=== PATIENT | female | born 1945 | race Asian ===

== ENCOUNTER 2017-06-24 17:49 | Emergency (ER) | payer MEDICARE, MEDICAID ==
--- NOTE | 2017-06-24 18:27 | ED Physician Chart ---
ED Chief Complaint/HPI - Patient Information Date Seen:: 06/24/17 Time Seen:: 18:15 Chief Complaint:: left foot swelling and redness History of Present Illness:: 1 week ago the patient dropped scissors on the lateral aspect of her left ankle. She was placed on antibiotics for cellulitis. She went to Dr. Pandya' s office today for recheck and he sent her here by ambulance. Patient complains of pain with ambulation. Allergies:: Allergies Allergy/AdvReac Type Severity Reaction Status Date / Time No Known Allergies Allergy Verified 06/24/17 17:55 Vitals:: Vital Signs - 8 hr 06/24/17 17:56 Temp 98.7 F HR 69 RR 17 BP 139/77 O2 Sat % 97 Historian:: Patient Review:: Nurse's Note Reviewed ED Review of Systems - Review of Systems General/Constitutional: No fever, No chills Skin: Skin lesions Head: No headache Eyes: No loss of vision ENT: No earache Neck: No neck pain Cardio Vascular: No chest pain, No palpitations Pulmonary: No SOB GI: No nausea, No vomiting, No diarrhea G/U: No dysuria, No hematuria Musculoskeletal: Bone or joint pain Psychiatric: No prior psych history, No depression Hematopoietic: No bruising Allergic/Immuno: No urticaria Neurological: No syncope, No focal symptoms ED Past Medical History - Past Medical History Past Medical History: HTN, CHF, Asthma/COPD Family History: Diabetes Melitus, HTN Social History: Non Smoker, No Alcohol Surgical History: other (cataract surgery both eyes) Psychiatricy History: None Medication: Reviewed ED Physical Exam - Physical Examination General/Constitutional: Well-developed, well-nourished, Alert, No distress Head: Atraumatic Eyes: Lids, conjuctiva normal, PERRL Skin: Nl inspection, No rash, No skin lesions, No ecchymosis ENMT: External ears, nose nl Neck: No nuchal rigidity Respiratory: Nl effort/Exclusion, Clear to Auscultation Cardio Vascular: RRR GI: No tenderness/rebounding/guarding, No organomegaly, No hernia, Normal BS's : No CVA tenderness Other Extremities comments:: Left ankle: There is a 5 mm crusted abrasion of the lateral aspect of the left ankle. Left foot: Brown hyperpigmentation and slight swelling of the dorsum of the left foot Neuro/Psych: Alert/oriented, No focal deficits Misc: No paraspinal tenderness ED Labs/Radiology/EKG Results - Lab Results Results: Laboratory Results - last 24 hr 06/24/17 19:46 WBC 8.2 RBC 4.14 Hgb 12.6 Hct 37.6 L MCV 90.8 MCH 30.4 MCHC Differential 33.4 RDW 12.1 Plt Count 294 MPV 7.5 Neutrophils % 52.0 Lymphocytes % 31.8 Monocytes % 10.5 H Eosinophils % 4.7 Basophils % 1.0 ED Assessment - Assessment General Assessment: I spoke to the family at 2004 and they said patient was sent here by ambulance to get a tetanus shot because Dr. Pandya did not have the tetanus booster in his office. Patient's cellulitis of the dorsum of the left foot looks like it' s healing but I will prescribe 10 days of Keflex 500 mg 4 times a day in case there is any active residual infection present. ED Septic Shock - . Is Septic Shock (SBP<90, OR Lactate>4 mmol\L) present?: No - <6hrs of presentation: Vital Signs: Vital Signs - 8 hr 06/24/17 17:56 Temp 98.7 F HR 69 RR 17 BP 139/77 O2 Sat % 97 ED Reassessment (Disposition) - Reassessment Reassessment Condition:: Unchanged - Diagnosis Diagnosis:: Cellulitis left foot - Aftercare/Follow up Instructions Aftercare/Follow-Up Instructions:: Refer to Discharge Instructions Medication Prescribed:: Keflex 500 mg 4 times a day for 10 days - Patient Disposition Discharge/Transfer:: Home Condition at Disposition:: Stable, Unchanged
[2017-06-24 19:58] LABS: % EOSINOPHILS 4.7 % (0.0-5.0); % LYMPHOCYTES 31.8 % (20.0-50.0); % MONOCYTES 10.5 % (2.0-10.0); BASOPHILE ABSOLUTE 0.1 Th/cumm (0-0.2); EOSINOPHILE ABSOLUTE 0.4 Th/cmm (0.1-0.4); HEMATOCRIT 37.6 % (41.0-60); HEMOGLOBIN 12.6 gm/dL (12-16); LYMPHOCYTE ABSOLUTE 2.6 Th/cmm (1.5-3.0); MEAN CELL VOLUME 90.8 fl (81-100); MEAN CORPUSCULAR HEMOGLOBIN 30.4 pg (27.0-31.0); MEAN CORPUSCULAR HGB CONC 33.4 pg (28.0-36.0); MEAN PLATELET VOLUME 7.5 fl; MONOCYTE ABSOLUTE 0.9 Th/cmm (0.3-1.0); NEUTROPHILE ABSOLUTE 4.2 Th/cmm (1.8-8.0); PLATELET COUNT 294 Th/cmm (150-400); RED BLOOD COUNT 4.14 Mil/cmm (3.80-5.20); RED CELL DISTRIBUTION WIDTH 12.1 % (11.5-20.0); WHITE BLOOD COUNT 8.2 Th/cmm (4.8-10.8)
== END 2017-06-24 20:32 | disposition home or self-care (01) ==
LOC: ER 17:49
DX: L03.116 Cellulitis of left lower limb (principal); I11.0 Hypertensive heart disease with heart failure; I50.9 Heart failure, unspecified; J44.9 Chronic obstructive pulmonary disease, unspecified; J45.909 Unspecified asthma, uncomplicated
CPT/HCPCS: 36415-UA; 85025-TC; Z7502; Z7610